=== PATIENT | female | born 1995 | race Two or more races ===

== ENCOUNTER 2016-10-08 07:40 | Emergency (ER) | payer SELFPAY ==
[2016-10-08] MEDS ORDERED: LORAZEPAM 2 MG/ML 1ML SDV ONE (07:56)
[2016-10-08 08:41] LABS: URINE BILIRUBIN NEGATIVE (NEGATIVE); URINE BLOOD TRACE (NEGATIVE); URINE GLUCOSE (UA) NEGATIVE (NEGATIVE); URINE LEUKOCYTE ESTERASE NEGATIVE (NEGATIVE); URINE NITRITE NEGATIVE (NEGATIVE); URINE PROTEIN TRACE (NEGATIVE); URINE UROBILINOGEN NORMAL (0-1 mg/dl)
[2016-10-08 08:46] LABS: ABSOLUTE NEUTROPHIL COUNT 5.4 K/mm3 (1.8-7.7); BASO % 0.5 % (0.2-1.0); EOS % 0.2 % (0.9-2.9); HEMATOCRIT 36.3 % (37.0-47.0); HEMOGLOBIN 12.1 gm/l (12.0-16.0); IMM NEUT% 0.5 % (0-1); LYMPH # 2.4 (1.0-4.8); LYMPH % 28.3 % (15-45); MEAN CELL VOLUME 85.8 fl (81.0-99.0); MEAN CORPUSCULAR HEMOGLOBIN 28.6 pg (27.0-31.0); MEAN CORPUSCULAR HGB CONC 33.3 g/dl (33.0-37.0); MEAN PLATELET VOLUME 10.1 fl (7.4-10.4); MONO # 0.5 (0.0-0.8); MONO % 6.3 % (4-12); NEUT % 64.2 % (43-75); PLATELET COUNT 230 K/mm3 (130-400); RED CELL DISTRIBUTION WIDTH 12.8 % (11.5-14.5)
[2016-10-08 08:48] LABS: URINE APPEARANCE CLEAR; URINE COLOR YELLOW
[2016-10-08 09:01] LABS: AMPHETAMINES/METHAMPHETAMINES NEGATIVE (NEGATIVE); COCAINE NEGATIVE (NEGATIVE); MARIJUANA POSITIVE (NEGATIVE); METHADONE NEGATIVE (NEGATIVE); OPIATES NEGATIVE (NEGATIVE); TRICYCLIC ANTIDEPRESSANTS NEGATIVE (NEGATIVE)
[2016-10-08 09:06] LABS: ACETAMINOPHEN < 10 ug/ml; ALB/GLOB RATIO 1.1 (>1.0); ALBUMIN 4.2 gm/dL (3.5-5.7); ALT/SGPT 19 U/L (7-52); BLOOD UREA NITROGEN 16 mg/dL (7-25); BUN/CREATININE RATIO 27 (6-20); GLOMERULAR FILTRATION RATE 127 mL/min (60-116); MAGNESIUM 1.7 mg/dL (1.9-2.7); SALICYLATE < 5 mg/dl (0-30)
== END 2016-10-08 10:50 | disposition home or self-care (01) ==
LOC: ED 07:40
DX: F41.1 Generalized anxiety disorder (principal); R07.9 Chest pain, unspecified; R53.1 Weakness; F12.90 Cannabis use, unspecified, uncomplicated
CPT/HCPCS: 85379; 80307 ×3; 84703; 85025; 82550; 80305; 80053; 83735; 81003; 84484; 36415 ×6; 99284 ×2; 96374; 96361; 51701; 93005; J2060